=== PATIENT | female | born 1990 | race Caucasian/White ===

== ENCOUNTER 2019-08-07 10:30 | Outpatient (AMBR) | payer MEDICAID, SELFPAY ==
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
--- NOTE | 2019-08-07 12:12 | PT.ODAYNRPT ---
PT Outpatient Daily Note Date of Service: August 07, 2019 OP Daily Note Visit Reasons: LEFT ANKLE Outpatient Physical Therapy Treatment Date: 08/07/19 Subjective: Pt mention that her ankle and hip is sore Objective: Please see flow chart for list of ther ex performed Assessment: tolerate exercises with minimal pain Plan: Continue with PT Length of Time (minutes) of Treatment: 30 Minutes Office Procedures PT Procedures PT Date of Service: 08/03/19 OP PT Eval Mod Complex 30 minutes: Yes PT Procedures PT Date of Service: 08/07/19 Therapeutic Exercise 30 minutes: Yes
== END 2019-08-07 23:59 | disposition home or self-care (01) ==
PROVIDERS: PCP Family Medicine; Referring Provider Family Medicine; Visit Provider Family Medicine
DX: M25.572 Pain in left ankle and joints of left foot (principal); S82.202D Unspecified fracture of shaft of left tibia, subsequent encounter for closed fracture with routine healing; M25.552 Pain in left hip; V89.2XXD Person injured in unspecified motor-vehicle accident, traffic, subsequent encounter; R26.2 Difficulty in walking, not elsewhere classified
CPT/HCPCS: 97110; 97162